=== PATIENT | female | born 1975 | race Hispanic/Latino ===

== ENCOUNTER 2020-02-10 23:42 | Emergency (ER) | payer BC ==
[~2020-02-10] VITALS: Ht 167.6 cm; Wt 86.2 kg
--- OUTSIDE RECORDS SUMMARY | 2020-02-10 23:45 | XMS REPORT | Summary of Care ---
Author Author [facility] Address [address] [place] [address] Phone Unavailable Care Team Providers Care Gun Club Manager Name Role Phone YOLIS BO N.P. Unavailable Unavailable KENYA PARNELL MD Unavailable Unavailable Unavailable Unavailable Functional Status Name Dates Details Functional status health issues are not documented Status: Name Dates Details Cognitive status health issues are not d ocumented Status: Problems Name Dates Details Obesity, morbid, BMI 40.0-49.9 (278.01, E66.01) Status: Active Vitamin D deficiency (268.9, E55.9) Status: Active Essential (primary) hypertension (401.9, I10) Status: Active Medications Name Dates Details Lisinopril 10 MG Oral Tablet two tablets daily Active Imitrex TABS * Refills: 0 Active PriLOSEC 20 MG CPDR prilosec daily * Refills: 0 Active Vitamin D (Ergocalciferol) 1.25 MG (95965 HI) Oral Capsule Take 1 capsule two times per week for 90 days * Quantity: 24 Refills: 0 YOLIS BO N.P. * Start : 23-Jul-2017 Active Allergies and Adverse Reactions Name Dates Details No Known Drug Allergies (Allergy) Status : Active Past Medical History Name Dates Details History of bronchitis (V12.69, Z87.09) Status: Resolved History of conjunctivitis (V12.49, Z86.6 9) Status: Resolved History of dermatitis (V13.3, Z87.2) Status: Resolved History of esophageal reflux (V12.79, Z8 7.19) Status: Resolved History of low back pain (V13.59, Z87.39 ) Status: Resolved History of Migraine without status migra inosus, not intractable (346.90, G43.909) Status: Resolved History of shortness of breath (V13.89, Z87.898) Status: Resolved History of vertigo (V12.49, Z87.898) Status: Resolved Procedures Procedure Dates Details History of Section Completed History of Sleeve gastrectomy Completed Immunization Name Dates Details Immunizations not documented Family History Name Dates Details Family history of Cancer Status: Active Social History Name Dates Details - Status: Name Dates Details Never smoker Vital Signs Date Test Result Details No Known Vitals to report Results Date Description Value Details Results not documented Plan of Care Name Dates Details Planned Observations Planned Goals not documented Instructions Name Dates Details Instructions not documented Encounters Appointment; SHARYN ANDERSEN RD Encounter Diagnosis: Problem not documented On: 31-Oct-2017 14:00 Appointment; SHARYN ANDERSEN RD Encounter Diagnosis: Problem not documented On: 27-Nov-2017 15:00 Appointment; SHARYN ANDERSEN RD Encounter Diagnosis: Problem not documented On: 02-Dec-2017 11:00 Appointment; SHARYN ANDERSEN RD Encounter Diagnosis: Problem not documented On: 02-Jan-2018 15:30 Appointment; SAHRYN ANDERSEN RD Encounter Diagnosis: Problem not documented On: 03-Jan-2018 12:00 Appointment; SHARYN ANDERSEN RD Encounter Diagnosis: Problem not documented On: 03-Jan-2018 12:00 Appointment; SHARYN ANDERSEN RD Encounter Diagnosis: Problem not documented On: 03-Jan-2018 12:00 Appointment; TRISHA HARO M.D. Encounter Diagnosis: Problem not documented On: 14-Mar-2018 8:30 Appointment; TRISHA HARO M.D. Encounter Diagnosis: Problem not documented On: 04-Apr-2018 8:00 Appointment; TRISHA HARO M.D. Encounter Diagnosis: Problem not documented On: 09-May-2018 12:00 Appointment; TRISHA HARO M.D. Encounter Diagnosis: Problem not documented On: 16-May-2018 8:30
--- OUTSIDE RECORDS SUMMARY | 2020-02-10 23:45 | XMS REPORT | Continuity of Care Document ---
Author Author [facility] t Organization [facility] Address [address] [place] [address] Phone Unavailable Care Team Providers Care Fruit Buyer Name Role Phone BOB BONNER M.D. Attphys Unavailable SHARYN ANDERSEN RD Attphys Unavailable Bob Bonner M.D. Attphys Unavailable Problems Condition Name Condition Details Condition Category Status Onset Date Resolution Date Last Treatment Date Treating Clinician Comments Source History of bronchitis History of bronchitis Problem Resolved [facility] History of conjunctivitis History of conjunctivitis Problem Resolved [facility] History of dermatitis History of dermatitis Problem Resolved [facility] History of Migraine without status migrainosus, not in tractable History of Migraine without status migrainosus, not intractable Problem Resolved [facility] History of shortness of breath History of shortness of breath Probl em Resolved [facility] History of vertigo History of vertigo Problem Resolved [facility] Essential (primary) hypertension Essential (primary) hypertensio n Problem Active [facility] Vitamin D deficiency Vitamin D deficiency Problem Active [facility] History of low back pain History of low back pain Problem Resolved [facility] Obesity, morbid, BMI 40.0-49.9 Obesity, morbid, BMI 40.0-49.9 Problem Active [facility] History of esophageal reflux History of esophageal reflux Problem Re solved [facility] Allergies, Adverse Reactions, Alerts This patient has no known allergies or adverse reactions. Family History Family Member Diagnosis Comments Start Date Stop Date Source Mother Family history of Cancer [facility] Social History Smoking Status Start Date Stop Date Source Never smoked tobacco (finding) [facility] Medications Ordered Medication Name Filled Medication Name Start Date Stop Da te Current Medication? Ordering Clinician Indication Dosage Frequency Signature (SIG) Comments Components Source Vitamin D (Ergocalciferol) 1.25 MG (68956 UT) Oral Cap royce Vitamin D (Ergocalciferol) 1.25 MG (99037 UT) Oral Capsule 2017-07-23 00:00:00 Yes YOLIS BO APRN Take 1 capsule two times per wee k for 90 days [facility] Lisinopril 10 MG Oral Tablet Lisinopril 10 MG Oral Tablet Y es two tablets daily [facility] PriLOSEC 20 MG CPDR PriLOSEC 20 MG CPDR Yes prilosec daily [facility] Imitrex TABS Imitrex TABS Yes [facility] Vital Signs Vital Name Observation Time Observation Value Comments Source BP Systolic 2018-04-04 08:25:00 139 mm[Hg] Location: LUE; Positi on: Sitting [facility] BP Diastolic 2018-04-04 08:25:00 92 mm[Hg] Location: ROBERT; Positi on: Sitting [facility] Height 2018-04-04 08:25:00 66 [in_us] [facility] Weight 2018-04-04 08:25:00 246.3125 [lb_av] [facility] Body Mass Index Calculated 2018-04-04 08:25:00 39.76 kg/m2 [facility] Temperature 2018-04-04 08:25:00 97.6 [degF] Method: Oral [facility] Heart Rate 2018-04-04 08:25:00 78 /min [facility] BP Systolic 2018-03-14 11:55:00 130 mm[Hg] Location: LUE; Positi on: Sitting [facility] BP Diastolic 2018-03-14 11:55:00 90 mm[Hg] Location: ROBERT; Positi on: Sitting [facility] Height 2018-03-14 11:55:00 66 [in_us] [facility] Weight 2018-03-14 11:55:00 259.3125 [lb_av] [facility] Body Mass Index Calculated 2018-03-14 11:55:00 41.85 kg/m2 [facility] Temperature 2018-03-14 11:55:00 97.8 [degF] Method: Oral [facility] Heart Rate 2018-03-14 11:55:00 84 /min [facility] Procedures Procedure Date / Time Performed Performing Clinician Bernardo e History of Section [facility] History of Sleeve [facility] Encounters Start Date/Time End Date/Time Encounter Type Admission Type [facility] Care Department Encounter ID Source 2018-05-16 08:30:00 2018-05-16 08:30:00 Appointment; BOB BONNER M.D. WILSON, TODD, M.D. [facility] [id number] [facility] 2018-05-09 12:00:00 2018-05-09 12:00:00 Appointment; BOB BONNER M.D. WILSON, TODD, M.D. [facility] [id number] [facility] 2018-04-04 08:00:00 2018-04-04 08:00:00 Appointment; BOB BONNER M.D. WILSON, TODD, M.D. [facility] [id number] [facility] 2018-03-14 08:30:00 2018-03-14 08:30:00 Appointment; BOB BONNER M.D. WILSON, TODD, M.D. [facility] [id number] [facility] 2018-01-03 12:00:00 2018-01-03 12:00:00 Appointment; SHARYN ANDERSEN RD WOLIN-RIKLIN, CAROL, RD UTP [facility] [id number] [facility] 2018-01-03 12:00:00 2018-01-03 12:00:00 Appointment; SHARYN ANDERSEN RD WOLIN-RIKLIN, CAROL, RD UTP [facility] [id number] [facility] 2018-01-03 12:00:00 2018-01-03 12:00:00 Appointment; SHARYN ANDERSEN RD WOLIN-RIKLIN, CAROL, RD UTP [facility] [id number] [facility] 2018-01-02 15:30:00 2018-01-02 15:30:00 Appointment; SHARYN ANDERSEN RD WOLIN-RIKLIN, CAROL, RD UTP [facility]TP [id number] [facility] 2017-12-02 11:00:00 2017-12-02 11:00:00 Appointment; SHARYN ANDERSEN RD WOLIN-RIKLIN, CAROL, RD UTP [facility]TP [id number] [facility] 2017-11-27 15:00:00 2017-11-27 15:00:00 Appointment; SHARYN ANDERSEN, SHARYN MCCLELLAN, RD UTP [facility]TP [id number] [facility] 2017-10-31 14:00:00 2017-10-31 14:00:00 Appointment; SHARYN ANDERSEN, SHARYN MCCLELLAN, RD UTP [facility]TP [id number] [facility] 2017-09-19 10:30:00 2017-09-19 10:30:00 Appointment; SHARYN ANDERSEN, SHARYN MCCLELLAN, RD UTP [facility]TP [id number] [facility] 2017-08-19 11:00:00 2017-08-19 11:00:00 Appointment; SHARYN ANDERSEN RD WOLIN-RIKLIN, CAROL, RD UTP UTP [id number] [facility] 2017-07-16 13:00:00 2017-07-16 13:00:00 Appointment; Bob Bonner M.D. Wilson, Todd, M.D. [facility] UTP [id number] [facility] Results Test Description Test Time Test Comments Results Result Comments Source MG Mammo Digital Screening Bilateral 2019-07-24 14:13:21 Patient: FIDEL FRAZIER Date/Time07/24/2019 09:33 CSTReason for ExamZ12.31ReportLocation R 16BILATERAL SCREENING MAMMOGRAM WITH TOMOSYNTHESIS AND CADHistory: 44 year-old female who presents for screening mammogram.Technique: CC and MLO views of both breasts. CC and MLO tomographic images of each breast with C- view provided. Computer-aided detection is utilized.Comparison: Mammogram dated 07/21/2015 and 06/25/2014. Breast ultrasound dated 07/21/2015, left.Findings:There are scattered areas of fibroglandular density.No evidence of new dominant mass, asymmetry, architectural distortion or suspicious microcalcifications is seen. Parenchymal pattern is overall stable.Stable benign appearing axillary lymph nodes are seen.Impression:No mammographic evidence of malignancy.RECOMMENDATIONS: FOLLOW-UP MAMMOGRAM IN ONE YEAR IN THE ABSENCE OF CLINICAL FINDINGS.BI-RADS CATEGORY 2: Benign Final Dictated by: MD Emma, Abby FDictated DT/TM: 07/24/2019 1:14 pmSigned by: MD Emma, Abby FSigned (Electronic Signature): 07/24/2019 2:13 pm [QL] CBC (INCLUDES DIFF/PLT) 2017-07-16 15:16:01 Test Item WBC (test code = WBC) 9.7 {K/CMM} 3.7-10.4 RBC (test code = RBC) 4.79 {M/CMM} 4.20-5.40 Hgb (test code = 64316-9) 14.5 g/dl 12.0-16.0 Hct (test code = 4544-3) 43.3 % 36.0-48.0 MCV (test code = MCV) 90.4 fL 80.0-98.0 MCH (test code = MCH) 30.3 pg 27.0-31.0 MCHC (test code = MCHC) 33.5 g/dl 32.0-36.0 RDW (test code = RDW) 14.8 % 11.5-14.5 Platelet (test code = 777-3) 294 {K/CMM} 133-450 Mean Platelet Volume (test code = Mean Platelet Volume) 7.8 fL 7.4-10.4 [facility]] [id number] 15:16:01* Test Item Value Reference Range Interpretation Comments Segmented Neutrophils (test code = 41565-7) 64.8 % 45.0-75.0 Monocytes #; Above High Threshold (test code = 58690-4) 0.9 {K/CMM} 0.0-0.8 Lymphocytes (test code = Lymphocytes) 23.9 % 20.0-40.0 Eosinophils # (test code = 51199-2) 0.1 {K/CMM} 0.0-0.5 Basophils # (test code = 71530-3) 0.1 {K/CMM} 0.0-0.2 Segs-Bands # (test code = 86885-2) 6.3 {K/CMM} 1.5-8.1 Lymphocytes # (test code = 31098-2) 2.3 {K/CMM} 1.0-5.5 [facility]] CMP [id number] 15:16:01* Test Item Value Reference Range Interpretation Comments Sodium Level (test code = Sodium Level) 138 {mEq/l} 135-145 Potassium Level (test code = Potassium Level) 4.2 {mEq/l} 3.5-5.1 Chloride Level (test code = Chloride Level) 105 {mEq/l} 95-109 Carbon Dioxide (test code = Carbon Dioxide) 23 {mEq/l} 24-32 AGAP (test code = AGAP) 14.2 {mEq/l} 10.0-20.0 Glucose Lvl (test code = Glucose Lvl) 80 mg/dl 70-99 Adult reference range values reflect the clinical guidelinesof the [place] [employer]. Creatinine Lvl (test code = Creatinine Lvl) 0.70 mg/dl 0.50-1.40 Blood Urea Nitrogen (test code = Blood Urea Nitrogen) 11 mg/dl 7-22 BUN/Creatinine Ratio (test code = BUN/Creatinine Ratio) 16 6-25 Albumin Lvl (test code = 1751-7) 3.9 g/dl 3.5-5.0 Calcium Level Total (test code = Calcium Level Total) 8.9 mg/dl 8.5-10.5 AST (test code = 1916-6) 16 u/l 0-37 Bili Total (test code = 53491-5) 0.6 mg/dl 0.2-1.3 eGFR (test code = eGFR) 106 {ML/MIN/1.7} The eGFR is calculated using the CKD-EPI formula. In most young, healthyindividuals the eGFR will be >90 mL/min/1.73m2. The eGFR declines with age. AneGFR of 60-89 may be normal in some populations, particularly the elderly, forwhom the CKD-EPI formula has not been extensively validated. Use of the eGFR isnot recommended in the following populations:Individuals with unstable creatinine concentrations, including patients and those with serious co-morbid conditions.Patients with extremes in muscle mass or diet.The data above are obtained from the National Kidney Disease Education Program(NKDEP) which additionally recommends that when the eGFR is used in patientswith extremes of body mass index for purposes of drug dosing, the eGFR shouldbe multiplied by the estimated BMI. Total Protein (test code = 53110-4) 8.2 g/dl 6.4-8.4 Globulin (test code = Globulin) 4.3 g/dl 2.7-4.2 A/G Ratio (test code = A/G Ratio) 0.9 0.7-1.6 ALT (test code = 1742-6) 23 u/l 0-65 Alk Phos (test code = 1783-0) 83 u/l 39-136 [facility]] LIPID [id number] 15:16:01* Test Item Value Reference Range Interpretation Comments Chol (test code = Chol) 227 mg/dl <=199 Trig; Above High Threshold (test code = 2571-8) 181 mg/dl <=149 HDL Cholesterol (test code = HDL Cholesterol) 54 mg/dl >=61 LDL (test code = LDL) 137 mg/dl <=99 CHD Risk (test code = CHD Risk) 4.20 3.90-5.80 VLDL (test code = VLDL) 36 [facility]] PTH, INTACT (WITHOUT CALCIUM)2017-07-16 15:16:01* Test Item Value Reference Range Interpretation Comments Parathyroid Hormone Intact (test code = Parathyroid Hormone Intact) 74.9 pg/ml 11.1-79.5 [facility]] VITAMIN D, 25-HYDROXY, LC/MS/[id number] 15:16:01* Test Item Value Reference Range Interpretation Comments Vitamin D, 25-OH, Total (test code = Vitamin D, 25-OH, Total ) 7.9 ng/ml 30.0-100.0 Reference range is based on recommendations in the EndocrineSociety Clinical Practice Guideline (J Clin Endocrinol Wddkx6737;96:1648-9629) [facility]] FOLATE, [id number] 15:16:01* Test Item Value Reference Range Interpretation Comments Folate Level (test code = Folate Level) 5.5 ng/ml >=3.0 [facility]] IRON, [id number] 15:16:01* Test Item Value Reference Range Interpretation Comments Iron (test code = Iron) 63 ug/dL 30-160 [facility]] VITAMIN [id number] 15:16:01* Test Item Value Reference Range Interpretation Comments Vitamin B12 Level (test code = Vitamin B12 Level) 332 pg/ml 254- 1320 [facility]] TSH, 3RD GENERATION W/REFLEX TO FT4 2017-07-16 15:16:01* Test Item Value Reference Range Interpretation Comments TSH (test code = 19316-4) 2.300 {uIU/ml} 0.360-3.740 [facility]] HEMOGLOBIN [id number] 15:16:01* Test Item Value Reference Range Interpretation Comments Hemoglobin A1c; Above High Threshold (test code = 4548-4) 5.8 % <=5.6 [facility][] Vitamin E [id number] 15:16:01* Test Item Value Reference Range Interpretation Comments Alpha-Tocopherol (test code = Alpha-Tocopherol) 12.1 mg/L 5.3-16 .8 Performed At: [address] [id number] Amos MD Ph:[phone] [facility][] Vit [id number] 15:16:01* Test Item Value Reference Range Interpretation Comments Vitamin A Level (test code = Vitamin A Level) 43 ug/dL 20-65 Performed At: [facility] [id number] Amos MD Ph:[phone] [facility]] VITAMIN B1, WHOLE [id number] 15:16:01* Test Item Value Reference Range Interpretation Comments Vitamin B1 Level (test code = Vitamin B1 Level) 150.2 nmol/L 66.5-2 00.0 This test was developed and its performance characteristicsdetermined by [employer]. It has not been cleared orapproved by the Food and Drug Administration.Performed At: [address] [id number] Amos MD Ph:[phone] [facility]
--- OUTSIDE RECORDS SUMMARY | 2020-02-10 23:45 | XMS REPORT | Summary of Care ---
Author Author [facility] Address [address] [place] [address] Phone Unavailable Care Team Providers Care Crepe Sole Scourer Name Role Phone OYLIS BO APRN Unavailable Unavailable KENYA PARNELL MD Unavailable Unavailable [...] I10) Status: Active Medications Name Dates Details Vitamin D (Ergocalciferol) 1.25 MG (5000 0 UT) Oral Capsule Take 1 capsule two times per week for 90 days Quantity: 24 YOLIS BO APRN * Start : 23-Jul-2017 Active PriLOSEC 20 MG CPDR prilosec daily * Refills: 0 Active Imitrex TABS * Refills: 0 Active Lisinopril 10 MG Oral Tablet two tablets daily * Refills: 0 Active Allergies and Adverse Reactions Name Dates [...] Details - Status: Name Dates Details Never smoked tobacco (finding) Vital Signs Date Test Result Details No Known Vitals to report Results Date Description Value Details Results not documented Plan of Care Name Dates Details Planned Observations Planned Goals not documented Instructions Name Dates Details Instructions not documented Encounters Appointment; SHARYN ANDERSEN RD Encounter Diagnosis: Problem not documented On: 02-Jan-2018 15:30 Appointment; SHARYN ANDERSEN RD Encounter Diagnosis: Problem [...]
--- OUTSIDE RECORDS SUMMARY | 2020-02-10 23:45 | XMS REPORT | Summary of Care ---
Author Author Ha Neal, FIDEL SYKES Organization Unknown Address Unknown Phone Unavailable Care Team Providers Care Commercial Teller Name Role Phone YOLIS BO N.P. Unavailable Unavailable Bob Bonner M.D. Unavailable Unavailable KENYA PARNELL MD Unavailable Unavailable [...] * Refills: 0 Active Vitamin D (Ergocalciferol) 68138 UNIT Oral Capsule Take 1 capsule two times [...] smoker Vital Signs Date Test Result Details 04-Apr-20188:25 BP Systolic 139 mm[Hg] Status: Comments: Lo cation: LUE; Position: Sitting BP Diastolic 92 mm[Hg] Status: Comments: Lo cation: LUE; Position: Sitting Height 66 in Status: Weight 246.3125 lb Status: Body Mass Index Calculated 39.76 kg/m2 Status: Body Surface Area Calculated 2.19 m2 Status: Temperature 97.6 f Status: Comments: Me thod: Oral Heart Rate 78 /min Status: 12-Ota-101477:55 BP Systolic 130 mm[Hg] Status: Comments: Lo cation: LUE; Position: Sitting BP Diastolic 90 mm[Hg] Status: Comments: Lo cation: LUE; Position: Sitting Height 66 in Status: Weight 259.3125 lb Status: Body Mass Index Calculated 41.85 kg/m2 Status: Body Surface Area Calculated 2.23 m2 Status: Temperature 97.8 f Status: Comments: Me thod: Oral Heart Rate 84 /min Status: Results Date Description Value Details Results not documented Plan of Care Name Dates Details Planned Observations Planned Goals not documented Planned Encounters Appointment; Bob Bonner M.D. On: 09-May-2018 12:00 Interventions Provided Plan* Return to clinic in 5 weeks Instructions Name Dates Details Instructions not documented Encounters Appointment; Bob Bonner M.D. Encounter Diagnosis: Problem not documented On: 16-Jul-2017 13:00 Appointment; SHARYN ANDERSEN RD Encounter Diagnosis: Problem not documented On: 19-Aug-2017 11:00 Appointment; SHARYN ANDERSEN RD Encounter Diagnosis: Problem not documented On: 19-Sep-2017 10:30 Appointment; SHARYN ANDERSEN RD Encounter Diagnosis: Problem [...] Problem not documented On: 03-Jan-2018 12:00 Appointment; Bob Bonner M.D. Encounter Diagnosis: Problem not documented On: 14-Mar-2018 8:30 Appointment; Bob Bonner M.D. Encounter Diagnosis: Problem not documented On: 04-Apr-2018 8:00
--- NOTE | 2020-02-11 00:03 | Emergency Department Note ---
History of Present Illnes History of Present Illness Chief Complaint: Extremity Trauma/Pain History of Present Illness This is a 44 year old female who was stepping down out of her bed onto some steps, when she missed a step, and fell onto her right wrist, landing on a carpeted surface. This occurred approximately 1 hour prior to presentation, and patient has been applying ice. Patient has pain with movement of the right wrist. She denies any history of previous fractures. . Historian: Patient Arrival Mode: Car Additional Treatment CERTIFIED MEDICAL TECHNICIAN: ice [employer] Required: No Onset (how long ago): hour(s) (1) Location: right wrist Quality: pain, throbbing Radiation: Reports non-radiation Severity: moderate Onset quality: sudden Duration (how long): hour(s) (1) Timing of current episode: constant Progression: unchanged Chronicity: new Context: Reports trauma/injury; Denies recent illness, Denies recent surgery Relieving factors: cold therapy (helpful) Exacerbating factors: movement Associated symptoms: Reports denies other symptoms (no numbness, tingling or focal weakness) Treatments prior to arrival: cold therapy Risk factors: middle age, no history of previous fracture Past Medical/Family History Physician Review I have reviewed the patient's past medical and family history. Any updates have been documented here. Past Medical History Recent Fever: No Clinical Suspicion of Infectio: No New/Unexplained Change in Ment: No Past Medical History: None Past Surgical History: Hysterectomy, (x1) Social History Smoking Cessation: Never Smoker Alcohol Use: Occasional Any Illegal Drug Use: No TB Exposure/Symptoms: No Physically hurt or threatened: No Family History Family history of heart diseas: No Other Any Pre-Existing Lines (PICC,: No Is patient up to date on immun: No Review of Systems Review of Systems Constitutional: Reports no symptoms EENTM: Reports no symptoms Cardiovascular: Reports no symptoms Respiratory: Reports no symptoms Musculoskeletal: Reports joint pain (right wrist pain with movement and swelling), Reports muscle pain Integumentary: Reports no symptoms Neurological: Reports no symptoms; Denies numbness, Denies tingling, Denies weakness Psychological: Reports no symptoms Review of other systems All other systems reviewed and negative. Physical Exam Related Data Allergies: Coded Allergies: No Known Drug Allergies (Verified Allergy, Unknown, 02/11/20) Vital signs reviewed: Yes Physical Exam CONSTITUTIONAL Constitutional: Reports well-developed, Reports well-nourished HENT HENT: Reports normocephalic, Reports atraumatic, Reports oropharynx clear/moist, Reports nose normal HENT L/R: Reports left ext ear normal, Reports right ext ear normal EYES Eyes: Reports PERRL, Reports conjunctivae normal NECK Neck: Reports ROM normal PULMONARY Pulmonary: Reports effort normal, Reports breath sounds normal CARDIOVASCULAR Cardiovascular: Reports regular rhythm, Reports heart sounds normal, Reports capillary refill normal, Reports normal rate GASTROINTESTINAL GENITOURINARY SKIN Skin: Reports warm, Reports dry; Denies rash MUSCULOSKELETAL Musculoskeletal: Reports edema (right wrist), Reports tenderness (right lateral wrist), Reports swelling (right lateral wrist) NEUROLOGICAL Neurological: Reports alert, Reports oriented x 3, Reports no gross motor or sensory deficits PSYCHOLOGICAL Psychological: Reports mood/affect normal, Reports judgement normal Results Imaging Imaging results reviewed: Yes Impressions [place] [id number] Patient Name: FIDEL FRAZIER MR #: [id number] : 1975 Age/Sex: 44/F Req #: [id number] Adm Physician: Ordered by: WESTON KNOX MD Report #: [id number] Location: [facility] Room/Bed: Procedure: HOPD/WRIST 3VW RT - HOPD Exam Date: 02/11/20 Exam Time: 0016 REPORT STATUS: Signed WRIST 3VW RT - HOPD - 4 views HISTORY: Pain COMPARISON: None available. FINDINGS: See impression. IMPRESSION: Comminuted intra-articular fracture of the distal radius with minimal dorsal angulation. Signed by: Dr. Niranjan Alonso MD on 02/11/2020 12:27 AM Dictated By: NIRANJAN ALONSO MD Transcribed By: PAPA on 02/11/2026 COPY TO: WESTON KNOX MD~ Diagnostics Tests Diagnostic test(s) reviewed: Yes Assessment & Plan Medical Decision Making MDM Apply ice to the right wrist frequently, over the next several days, to help with pain and swelling. Keep the splint in place and utilize the sling, to help with comfort and immobilizing the wrist. Follow-up with Orthopedics this week, for further treatment of right wrist fracture. Pt states that her sister is an OT, and has someone in mind for her to see Take Pain meds, as prescribed. These can cause constipation, so please drink plenty of fluids and take a stool softener, if needed. Assessment & Plan Final Impression: (1) Fracture of distal end of right radius (2) Fall Depart Disposition: HOME, SELF-CARE Last Vital Signs Date Time Temp Pulse Resp B/P (MAP) Pulse Ox O2 Delivery O2 Flow Rate FiO2 02/11/20 01:55 66 18 100 02/10/20 23:49 98.5 136/81 Home Meds Active Scripts Acetaminophen With Codeine (TYLENOL WITH CODEINE #3 TABLET) 1 Each Tablet, 1-2 TAB PO Q6H for pain, #20 TAB 0 Refills Do NOT take and drive or operate machinery Prov:WESTON KNOX MD 02/11/20 WESTON KNOX MD Feb 11, 2020 00:03
--- NOTE | 2020-02-11 00:30 | Diagnostic Imaging Report ---
WRIST 3VW RT - HOPD - 4 views HISTORY: Pain COMPARISON: None available. FINDINGS: See impression. IMPRESSION: Comminuted intra-articular fracture of the distal radius with minimal dorsal angulation. Signed by: Dr. Niranjan Alonso MD on 02/11/2020 12:27 AM
[2020-02-11] MEDS ORDERED: ACETAMINOPHEN/CODEINE ELIX 120-12 MG/5 ML UDC ONE ×2 (01:16→01:22)
--- NOTE | 2020-02-11 01:20 | NUR ---
TYLENOL WITH COD. 20MLS GIVEN. ORDERS NOT CROSSING OVER ON eMAR
[2020-02-11] MEDS ORDERED: TYLENOL WITH C1 EACH PO (01:34)
[2020-02-11] MEDS ORDERED: ACETAMINOPHEN/CODEINE ELIX 120-12 MG/5 ML UDC PO ONE (01:45)
[2020-02-11 01:55] VITALS: BP 134/80
== END 2020-02-11 01:52 | disposition home or self-care (01) ==
LOC: FSED 23:42
DX: S52.501A Unspecified fracture of the lower end of right radius, initial encounter for closed fracture (principal); W10.9XXA Fall (on) (from) unspecified stairs and steps, initial encounter; Y92.003 Bedroom of unspecified non-institutional (private) residence as the place of occurrence of the external cause
CPT/HCPCS: 99283

== ENCOUNTER 2025-05-29 18:35 | Emergency (ER) | payer BC, OTHER ==
[~2025-05-29] VITALS: Ht 165.1 cm; Wt 79.5 kg
[~2025-05-29 18:35] MED LIST: TYLENOL WITH C1 EACH PO
[2025-05-29] MEDS ORDERED: SODIUM CHLORIDE 0.9% 100 ML ONE (20:07)
[2025-05-29] MEDS ORDERED: IOPAMIDOL 370 MG/ML 100 ML INFUS..BTL INJ ONE (20:07)
[2025-05-29] MEDS: SODIUM CHLORIDE 0.9% 1000ML 1,000 ML IV ONE (20:16)
[2025-05-29] MEDS: MECLIZINE HCL 12.5 MG TAB PO ONE (20:16)
[2025-05-29] MEDS: CEFTRIAXONE 1 GM VIAL IV ONE (20:19)
[2025-05-29] MEDS ORDERED: CEFPODOXIME PR200 MG PO (23:02)
[2025-05-29] MEDS ORDERED: MECLIZINE HCL12.5 MG PO (23:07)
[2025-05-29 23:15] VITALS: PULSE 60; RESP 18; TEMP 98.2
[2025-05-29 23:19] VITALS: BP 157/88; PULSE 60; RESP 18; TEMP 98.2; O2SAT 98
== END 2025-05-29 23:20 | disposition home or self-care (01) ==
LOC: FSED 18:39
DX: R51.9 Headache, unspecified (principal); H81.10 Benign paroxysmal vertigo, unspecified ear; N39.0 Urinary tract infection, site not specified; I10 Essential (primary) hypertension; E66.9 Obesity, unspecified
CPT/HCPCS: 70496; 70498; 80053; 81003; 85025; 96374; 99284; J0696; J7030; J7050; J8597; Q9967